=== PATIENT | male | born 1995 | race Caucasian/White ===

== ENCOUNTER → 2020-09-20 | Outpatient (CLI) | payer MEDICAID, MEDICARE, SELFPAY ==
--- NOTE | 2020-09-20 12:33 | REP ---
INDICATION: RIB PAIN COMPARISON: None. TECHNIQUE: Three views of the left hemithorax FINDINGS: Left ribs are intact. No obvious acute fracture. IMPRESSION: No left rib fracture identified. <Electronically signed by Alireza Delgado > 09/20/20 [id number]
== END ==
LOC: M SOG 10:58
PROVIDERS: ATTEND Orthopaedic Surgery Sports Medicine
DX: R07.81 Pleurodynia (principal)